=== PATIENT | female | born 1985 | race Caucasian/White ===

== ENCOUNTER 2022-04-28 10:11 | Emergency (ER) | payer OTHER, SELFPAY ==
[2022-04-28] VITALS (24 sets, daily range): BP systolic 101–152; BP diastolic 66–104; PULSE 69–102; RESP 15–22; TEMP 36.8; O2SAT 96–100
--- NOTE | ~2022-04-28 | CT_ITS ---
EXAMINATION: CT brain wo con DATE: 04/28/2022 11:16 INDICATION: Head injury. Loss of consciousness. TECHNIQUE: Computed tomography (CT) of the head was performed without intravenous contrast. The mA wa s adjusted according to patient size. Iterative reconstruction technique was employed. The dose-lengt h product was 605.33 mGy-cm. COMPARISON: None FINDINGS: There is no intracranial hemorrhage, acute infarction, or abnormal intracranial mass lesion . The ventricles are normal in size. The orbits are normal. The paranasal sinuses are clear. The mast oid air cells are normal. There is right frontal scalp soft tissue swelling. IMPRESSION: 1. Normal brain. Reviewed, dictated and finalized at location A. E RECEPTIONIST IMPRESSION: 1. Normal brain.
--- NOTE | ~2022-04-28 | CT_ITS ---
EXAMINATION: CTA chest PE protocol DATE: 04/28/2022 12:06 INDICATION: Syncope. Abnormal electrocardiogram. TECHNIQUE: Computed tomography angiography (CTA) of the chest was performed with 100 mL Omnipaque-350 intravenous contrast timed to evaluate the pulmonary arteries. Coronal maximum intensity projection 3D-reconstructions were created by the technologist. Automated exposure control and iterative reconst ruction technique were employed. The dose-length product was 668.67 mGy-cm. COMPARISON: None. FINDINGS: The lungs demonstrate mild atelectasis. No pleural effusion. The heart size is normal. No p ericardial effusion. There is no pulmonary embolus. There is diffuse hepatic steatosis. There is mild thoracic spondylosis. IMPRESSION: 1. No pulmonary embolus. Reviewed, dictated and finalized at location A. [employer] IMPRESSION: 1. No pulmonary embolus.
--- NOTE | 2022-04-28 10:17 | ECG_ITS ---
Measurements Intervals Shannon Rate: 91 P: 28 MD: 164 QRS: 10 QRSD: 104 T: 12 QT: 369 QTc: 454 Interpretive Statements SINUS RHYTHM INCOMPLETE RIGHT BUNDLE BRANCH BLOCK CONSIDER INFERIOR INFARCT, AGE INDETERMINATE BASELINE ARTIFACT- III, AVF ABNORMAL ECG NO PREVIOUS ECG AVAILABLE FOR COMPARISON Electronically Signed On 04-28-2022 14:34:48 PC NETWORK TECHNICIAN by Jonas Blank D.O.
--- NOTE | 2022-04-28 10:24 | ED.DIZZY ---
HPI - Dizziness General Chief Complaint: Syncope Stated Complaint: syncopal episode Time Seen by Provider: 04/28/22 10:19 History of Present Illness HPI Narrative: Patient is a 36-year-old healthy female here for evaluation after syncopal episode. Patient states that she was bearing down on the toilet when she felt lightheaded and fell forward, striking her head against the bathroom tile. She lost consciousness for an unknown amount of time, woke up and called her who brought her here. Currently complaining of a frontal headache. No nausea, vomiting, visual changes, seizures. Denies preceding chest pain, shortness of breath or palpitations. States that yesterday she was battling a stomach bug with diarrhea, nausea and vomiting. Today that has improved. Denies cardiac history or family history of cardiac disease. Related Data Allergies Allergy/AdvReac Type Severity Reaction Status Date / Time cefaclor Allergy Intermediate Vomiting Verified 04/28/22 10:16 Review of Systems Review of Systems: Gen: Denies fevers or chills Eyes: Denies eye pain or visual change ENT: Denies congestion Respiratory: Denies shortness of breath or cough CV: Denies chest pain or palpitations GI: Denies abdominal pain nausea, emesis or diarrhea : denies burning, urgency, frequency or hematuria Musculoskeletal: Denies back pain or muscle pain Neuro: Reports headache. Skin: Denies rash Except as documented, all other systems reviewed and negative Exam Narrative: APPEARANCE: Well appearing, no pain in distress, well-nourished. Head: Small hematoma noted to right forehead EYES: PERRLA/EOMI, conjunctivae clear NOSE: No nasal drainage EARS: External ear normal in appearance THROAT: Oropharynx is clear. Mucous membranes are moist. NECK: No neck tenderness. Supple. No adenopathy, no masses. RESPIRATORY: Airway patent, respirations nonlabored. Clear to auscultation bilaterally, no rales, rhonchi, wheezing. CARDIOVASCULAR: Regular rate and rhythm without murmurs, rubs, or gallops. ABDOMINAL: Normoactive bowel sounds. Soft, nontender, nondistended. No rebound tenderness or guarding. MUSCULOSKELETAL: Extremities are warm and well-perfused. Moves all extremities well. No edema. NEURO: Normal speech. No focal neurologic deficits. SKIN: Skin is warm and dry. No rashes. PSYCHIATRIC: Normal affect/mood.. Course Vital Signs Vital signs: Vital Signs Temperature 98.2 F 04/28/22 10:13 Pulse Rate 94 04/28/22 10:13 Respiratory Rate 15 04/28/22 10:13 Blood Pressure 151/82 H 04/28/22 10:13 Pulse Oximetry 99 04/28/22 10:13 Oxygen Delivery Room Air 04/28/22 10:13 Temperature 98.2 F 04/28/22 10:13 Pulse Rate 77 04/28/22 12:32 Respiratory Rate 17 04/28/22 12:32 Blood Pressure 120/77 04/28/22 12:17 Pulse Oximetry 100 04/28/22 12:32 Oxygen Delivery Room Air 04/28/22 10:13 MDM - Dizziness MDM Narrative Medical decision making narrative: 36-year-old female here for evaluation after what sounds like vasovagal syncope earlier today while bearing down on the toilet preceded by a day of GI symptoms. Patient is nontoxic in appearance, currently only complaining of a frontal headache. No preceding chest pain or shortness of breath. Her EKG does have an S1Q3T3 pattern with a incomplete right bundle branch block so a D-dimer was obtained which was slightly positive at 0.91. CTA looking for PE was negative for acute cardiopulmonary process. Negative orthostatics. Other basic labs are unremarkable, urine with evidence of dehydration. Patient was given fluids and medicine for her headache with great improvement of her symptoms. Will DC home to follow-up with PMD. Return precautions were discussed and she voiced understanding. Lab Data 04/28/22 10:29 04/28/22 10:29 Labs: Lab Results 04/28/22 04/28/22 04/28/22 Range/Units 10:29 10:29 10:29 WBC 9.0 (4.5-10.0) K/mm3 RBC 4.90 (
[2022-04-28 10:35] LABS: Basophils Percent Auto 0.1 % (0.2-1.2); Hematocrit 41.9 % (37.0-47.0); Hemoglobin 13.5 g/dL (12.0-15.0); Immature Granulocyte Absolute 0.05 K/mm3 (0.00-0.031); Immature Granulocyte Percent A 0.6 % (0-0.5); Lymphocytes Absolute Auto 1.75 K/mm3 (0.9-3.2); Lymphocytes Percent Auto 19.6 % (18.3-44.2); Mean Corpuscular HGB Conc 32.2 g/dl (32-36); Mean Corpuscular Hemoglobin 27.6 pg (26-34); Mean Corpuscular Volume 85.5 fl (80-100); Mean Platelet Volume 9.6 fl (7.4-10.4); Monocytes Absolute Auto 0.9 K/mm3 (0.1-0.6); Monocytes Percent Auto 9.8 % (2.6-8.5); Neutrophils Absolute Auto 6.3 K/mm3 (1.3-6.7); Neutrophils Percent Auto 69.9 % (45.5-73.1); Platelet Count Result 365 k/mm3 (150-375); Red Cell Distribution Width 14.6 % (11.5-14.5)
[2022-04-28] MEDS: LACTATED RINGERS 1,000 ML 999 ML IV CONT (10:45)
[2022-04-28] MEDS: PROCHLORPERAZINE EDISYLATE 10 MG/2 ML VIAL IV PUSH (10:45)
[2022-04-28] MEDS: diphenhydrAMINE HCl INJ 50 MG/ML VIAL 25 MG IV PUSH (10:46)
[2022-04-28 10:49] LABS: Alanine Aminotransferase 38 U/L (6-35); Albumin Level 4.7 g/dL (3.5-5.1); Alkaline Phosphatase 101 U/L (38-126); Anion Gap 9 mmol/L (8-16); Aspartate Amino Transferase 33 U/L (14-36); Bilirubin,Total 0.8 mg/dL (0.2-1.3); Blood Urea Nitrogen 17 mg/dL (7-17); Calcium 9.1 mg/dL (8.4-10.2); Carbon Dioxide 24 mmol/L (22-30); Chloride 103 mmol/L (98-107); Estimated CRCL calculation 123 ml/min; Estimated Glomerular Filt Rate > 60; Glucose 114 mg/dL (65-110); Potassium 3.5 mmol/L (3.4-5.0); Sodium 136 mmol/L (137-145)
[2022-04-28 10:56] LABS: Magnesium 2.2 mg/dL (1.6-2.3)
[2022-04-28 11:12] LABS: Appearance Urine Cloudy (Clear); Bacteria Urine Rare /hpf; Bilirubin Urine 1+ (Negative); Blood Urine Trace (Negative); Color Urine Dark Yellow (Yellow); Glucose Urine UA Negative (Negative); Ketones Urine Trace mg/dL (Negative); Leukocyte Esterase Ur Negative LEU/UL (Negative); Nitrate Urine Negative (Negative); Non Pathogenic Casts 0-2; Protein Urine 1+ mg/dL (Negative); RBC Urine 21-50 /hpf (0-2); Squamous Epithelial Cell Urine Few /hpf (Few); WBC Urine 0-5 /hpf; pH Urine 5.5 (5.0-9.0)
[2022-04-28 11:13] LABS: D Dimer 0.91 ug/mL (<0.48)
[2022-04-28 11:26] LABS: Add Urine Microscopic? YES; Specific Grav Ur 1.041 (1.001-1.035)
== END 2022-04-28 13:20 | disposition home or self-care (01) ==
PROVIDERS: Emergency Medicine; Emergency Provider Physician Assistant
DX: R55 Syncope and collapse (principal); R94.31 Abnormal electrocardiogram [ECG] [EKG]
CPT/HCPCS: 36415; 70450; 71275; 80053; 81001; 81025; 83735; 85025; 85380; 93005; 96360; 96361; 96374; 96375; 99284; J0780; J1200; J7120; Q9967